=== PATIENT | female | born 1945 | race Caucasian/White ===

== ENCOUNTER 2017-02-19 00:56 | Inpatient (IN) | payer OTHER ==
[~2017-02-19] VITALS: Ht 149.9 cm; Wt 71.0 kg
[2017-02-19] VITALS (8 sets, daily range): BP systolic 157–181; BP diastolic 72–82; PULSE 76–103; RESP 16–20; Ht 149.9 cm; Wt 71.0 kg
[2017-02-19] MEDS ORDERED: SOD CHLORIDE 0.9% 1,000 ML IV STA (01:24)
[2017-02-19] MEDS ORDERED: ASPIRIN 81 MG TAB PO STA (01:24)
[2017-02-19] MEDS ORDERED: NITROGLYCERIN 2% 1 GM OINT PKT TD STA (01:24)
[2017-02-19] MEDS: NITROGLYCERIN (SL) 0.4 MG TAB SL PRN ×3 (02:11→02:50)
--- NOTE | 2017-02-19 02:50 | RADRPT ---
PROCEDURE: XR Chest. CLINICAL INDICATION: Chest pain. TECHNIQUE: Single frontal chest x-ray. COMPARISON: None. FINDINGS: Heart is enlarged.. There is no congestive heart failure.. No focal infiltrate is seen. There is n o pleural effusion. There is no pneumothorax. There are degenerative changes of the thoracic spine .. IMPRESSION: Cardiomegaly. No CHF or infiltrate. RPTAT: HMVK .David Mccloud MD, MD Date Time Electronically viewed and signed by .David Mccloud MD, on 02/19/2017 02:49 .K/
[2017-02-19 02:55] LABS: BASOPHILS % 0.1 % (0.0-2.0); EOSINOPHILS % 0.1 % (0.0-7.0); HEMATOCRIT 36.1 % (37.0-47.0); HEMOGLOBIN 12.1 g/dl (12.0-16.0); LYMPHOCYTES # 1.2 10^3/ul (0.8-2.9); LYMPHOCYTES % 7.5 % (15.0-51.0); MEAN CORPUSCULAR HEMOGLOBIN 29.8 pg (29.0-33.0); MEAN CORPUSCULAR HGB CONC 33.5 g/dl (32.0-37.0); MEAN CORPUSCULAR VOLUME 88.9 fl (82.0-101.0); MEAN PLATELET VOLUME 12.3 fl (7.4-10.4); MONOCYTES % 5.9 % (0.0-11.0); NEUTROPHILS % 85.9 % (39.0-77.0); PLATELET COUNT 185 10^3/UL (140-415); RED BLOOD COUNT 4.06 10^6/ul (4.20-5.40); RED CELL DISTRIBUTION WIDTH 13.2 % (11.5-14.5); WHITE BLOOD COUNT 16.4 10^3/ul (4.8-10.8)
[2017-02-19] MEDS ORDERED: morphine 4 MG/ML VIAL IV STA (03:06)
[2017-02-19] MEDS ORDERED: ONDANSETRON 4 MG INJ IV STA (03:06)
[2017-02-19 03:29] LABS: ANION GAP 21 (8-16); BLOOD UREA NITROGEN 13 mg/dl (7-20); CARBON DIOXIDE 24 mmol/L (21-31); CHLORIDE 98 mmol/L (97-110); CREATININE 0.75 mg/dl (0.44-1.00); GLUCOSE 157 mg/dl (70-220); POTASSIUM 4.1 mmol/L (3.5-5.1); SODIUM 139 mmol/L (135-144)
[2017-02-19 03:39] LABS: TROPONIN-I < 0.012 ng/ml (0.00-0.12)
[2017-02-19] MEDS ORDERED: ACETAMINOPHEN 325 MG TAB PO PRN (04:30)
[2017-02-19] MEDS ORDERED: ONDANSETRON 4 MG INJ IV PRN (04:30)
--- NOTE | 2017-02-19 04:52 | ERA ---
ER Documentation Chief Complaint Date/Time DATE: 02/19/17 TIME: 04:49 Chief Complaint BP cheked HI today, feeling tired & dehydrated HPI Patient is a 71-year-old female with diabetes and hypertension who presents with chest pain. She said that she started feeling bad yesterday while watching the [employer] football game. She felt bloated. She said that she felt "hot and tight under the breast". She says "I feel crappy". She said that her sugar was 590 and her blood pressure is 197/108. She says that her primary doctor is Dr. Marian Gonzalez. Upon review of old medical records this is the patient's first visit to the emergency department. ROS All systems reviewed and are negative except as per history of present illness. Allergies Allergies: Coded Allergies: No Known Allergy (Unverified , 02/19/17) PMhx/Soc History of Surgery: Yes (right shoulder) Anesthesia Reaction: No Hx Neurological Disorder: No Hx Respiratory Disorders: No Hx Cardiac Disorders: Yes (htn) Hx Psychiatric Problems: No Hx Miscellaneous Medical Probl: Yes (dm) Hx Alcohol Use: No Hx Substance Use: No Hx Tobacco Use: No Smoking Status: Never smoker FmHx Family History: No coronary disease Physical Exam Vitals Vital Signs Date Time Temp Pulse Resp B/P Pulse Ox O2 Delivery O2 Flow Rate FiO2 02/19/17 02:30 85 16 164/73 99 Room Air 02/19/17 02:12 84 16 166/80 96 Room Air 02/19/17 01:03 99.5 90 20 205/89 98 Physical Exam Const: No acute distress Head: Atraumatic Eyes: Normal Conjunctiva ENT: Normal External Ears, Nose and Mouth. Neck: Full range of motion..~ No meningismus. Resp: Clear to auscultation bilaterally Cardio: Regular rate and rhythm, no murmurs Abd: Soft, non tender, non distended. Normal bowel sounds Skin: Pale skin Back: No midline or flank tenderness Ext: No cyanosis, or edema Neur: Awake and alert Psych: Normal Mood and Affect Result Diagram: 02/19/17 01402/19/17 014 Results 24 hrs Laboratory Tests Test 02/19/17 01:40 White Blood Count 16.410^3/ul Red Blood Count 4.0610^6/ul Hemoglobin 12.1g/dl Hematocrit 36.1% Mean Corpuscular Volume 88.9fl Mean Corpuscular Hemoglobin 29.8pg Mean Corpuscular Hemoglobin Concent 33.5g/dl Red Cell Distribution Width 13.2% Platelet Count 94218^3/UL Mean Platelet Volume 12.3fl Neutrophils % 85.9% Lymphocytes % 7.5% Monocytes % 5.9% Eosinophils % 0.1% Basophils % 0.1% Nucleated Red Blood Cells % 0.0/100WBC Neutrophils # (Manual) 14.110^3/ul Lymphocytes # 1.210^3/ul Monocytes # 1.010^3/ul Eosinophils # 0.010^3/ul Basophils # 0.010^3/ul Nucleated Red Blood Cells # 0.010^3/ul Sodium Level 139mmol/L Potassium Level 4.1mmol/L Chloride Level 98mmol/L Carbon Dioxide Level 24mmol/L Anion Gap 21 Blood Urea Nitrogen 13mg/dl Creatinine 0.75mg/dl Glucose Level 157mg/dl Calcium Level 10.0mg/dl Troponin I < 0.012ng/ml Current Medications Medications (Trade) Dose Ordered Sig/Monica Route PRN Reason Start Time Stop Time Status Last Admin Dose Admin Sodium Chloride (NS) 1,000 ml @ 1,000 mls/hr Q1H STAT IV 02/19/17 01:24 02/19/17 02:23 DC 02/19/17 02:10 Aspirin (Aspirin) 162 mg ONCE STAT PO 02/19/17 01:24 02/19/17 01:25 DC 02/19/17 02:10 Nitroglycerin (Nitroglycerin 2% Oint) 1 inch ONCE STAT TD 02/19/17 01:24 02/19/17 01:25 DC 02/19/17 03:07 Nitroglycerin (Nitroglycerin (Sl Tab) 0.4 Mg) 1 tab Q5M UP TO 3 DOSES PRN SL CHEST PAIN 02/19/17 01:30 02/19/17 02:50 Morphine Sulfate (morphine) 4 mg ONCE STAT IV 02/19/17 03:06 02/19/17 03:07 DC 02/19/17 04:21 Ondansetron HCl (Zofran Inj) 4 mg ONCE STAT IV 02/19/17 03:06 02/19/17 03:07 DC 8/28/17 04:21 Ondansetron HCl (Zofran Inj) 4 mg ER BRIDGE PRN IV NAUSEA AND/OR VOMITING 02/19/17 04:30 02/20/17 04:29 Acetaminophen (Tylenol Tab) 650 mg ER BRIDGE PRN PO MILD PAIN/FEVER 02/19/17 04:30 02/20/17 04:29 Procedures/MDM EKG read by me: Rate/Rhythm: Regular rate and rhythm at a normal rate Intervals: Normal Impression: No evidence of ischemia or arrhythmia Chest x-ray shows cardiomegaly per radiology. Patient is a 71-year-old female with hypertension and diabetes who presents with chest pain. I am concerned as the patient has hypertension and diabetes that she may have acute coronary syndrome. I doubt pneumonia, pneumothorax, pulmonary embolism, or aortic dissection. She was given aspirin and nitroglycerin. She will be admitted to the care of Dr. Cope as she has [employer] insurance. She will be admitted to a telemetry bed. Initial troponin is negative. Her sugar is normal in the emergency department. Departure Diagnosis: Primary Impression: Chest pain Qualified Code: R07.9 - Chest pain, unspecified type Additional Impression: Hypertension Qualified Code: I10 - Essential hypertension Condition: PRADEEP Munroe MD Feb 19, 2017 04:52
[2017-02-19] MEDS ORDERED: NACL 0.9% 3 ML SYG IV SCH (05:00)
[2017-02-19] MEDS: HYDROCODONE/APAP (5/325) TAB PO PRN ×2 (07:45→20:14)
[2017-02-19] MEDS ORDERED: FAMOTIDINE 20 MG TAB PO SCH (09:00)
[2017-02-19] MEDS: DOCUSATE SODIUM 100 MG CAP PO PRN ×2 (09:12→20:14)
[2017-02-19] MEDS: ENOXAPARIN 40 MG/0.4 ML SYG SC SCH (09:13)
[2017-02-19 10:21] LABS: D-DIMER 367.81 ng/ml (<460)
[2017-02-19 10:28] LABS: CREATINE KINASE 39 IU/L (23-200)
[2017-02-19 10:42] LABS: CK-MB 0.52 ng/ml (0.0-2.4)
[2017-02-19 10:45] LABS: TROPONIN-I < 0.012 ng/ml (0.00-0.12)
[2017-02-19 14:09] LABS: ALBUMIN 3.8 g/dl (3.3-4.9); ALBUMIN/GLOBULIN RATIO 1.05; BILIRUBIN,INDIRECT 0.6 mg/dl (0-1.1); BILIRUBIN,TOTAL 0.6 mg/dl (0.2-1.3); CALCIUM 9.1 mg/dl (8.4-10.2); CHOL/HDL RATIO 3.2 RATIO; CREATININE 0.64 mg/dl (0.44-1.00); MAGNESIUM 1.4 mg/dl (1.7-2.5); POTASSIUM 3.8 mmol/L (3.5-5.1); TOTAL PROTEIN 7.4 g/dl (6.1-8.1)
[2017-02-19 14:59] LABS: BASOPHILS % 0.1 % (0.0-2.0); EOSINOPHILS % 0.1 % (0.0-7.0); HEMATOCRIT 34.3 % (37.0-47.0); HEMOGLOBIN 11.7 g/dl (12.0-16.0); LYMPHOCYTES # 1.2 10^3/ul (0.8-2.9); LYMPHOCYTES % 8.2 % (15.0-51.0); MEAN CORPUSCULAR HEMOGLOBIN 29.6 pg (29.0-33.0); MEAN CORPUSCULAR HGB CONC 34.1 g/dl (32.0-37.0); MEAN CORPUSCULAR VOLUME 86.8 fl (82.0-101.0); MEAN PLATELET VOLUME 11.6 fl (7.4-10.4); MONOCYTES % 6.5 % (0.0-11.0); NEUTROPHILS % 84.6 % (39.0-77.0); PLATELET COUNT 175 10^3/UL (140-415); RED BLOOD COUNT 3.95 10^6/ul (4.20-5.40); RED CELL DISTRIBUTION WIDTH 13.1 % (11.5-14.5); WHITE BLOOD COUNT 15.2 10^3/ul (4.8-10.8)
[2017-02-19 15:51] LABS: CREATINE KINASE 51 IU/L (23-200)
[2017-02-19 16:04] LABS: CK-MB 0.45 ng/ml (0.0-2.4)
[2017-02-19 16:05] LABS: TROPONIN-I < 0.012 ng/ml (0.00-0.12)
--- NOTE | 2017-02-19 16:23 | RADRPT ---
Echocardiogram Report Patient Name: GILES PEREA Gender: Female Date: 1945 Study Date: 19-Feb-2017 Human Performance Professor: Myla [facility] Location: 33[address] Ref. Physician: PARVEZ MAY Quality: Adequate Procedures: Transthoracic echocardiogram with complete 2D, M-Mode, and doppler examination. Indications: Chest pain, weakness. 2D/M Mode Doppler Measurement Value Normal Ranges Measurement Value Normal Ranges LVIDd 2D 4.8 3.5 - 5.6 cm AV Peak Kris 2.1 m/sec LVIDs 2D 3.2 2.1 - 4.1 cm AV Peak PG 18.0 mmHg FS 2D 34.1 % LVOT Peak Kris 1.1 m/sec LVPWd 2D 1.3 0.6 - 1.1 cm LVOT Peak PG 5.0 mmHg IVSd 2D 1.3 0.6 - 1.1 cm MV E Peak Kris 1.4 m/sec IVS/LVPW 2D 1.0 MV A Peak Kris 1.4 m/sec AoR Diam 2D 2.4 2.0 - 3.7 cm MV E/A 1.0 LA/Ao 2D 2 0 - 1 MV Decel Time 194 msec EDV 2D 109.0 cm3 MV E/A 1.0 ESV 2D 31.3 cm3 TR Peak Kris 2.6 m/sec LA Dimen 2D 3.8 2.3 - 4.0 cm TR Peak PG 28.0 mmHg RVSP 31.0 mmHg Findings Left Ventricle: Normal left ventricular systolic function. Normal left ventricular cavity size. Mild concentric left ventricular hypertrophy. Ejection fraction is visually estimated at 65 %. Tissue Doppler/Mitral Doppler indices are consistent with impaired relaxation (Stage I diastolic dysfunction). Right Ventricle: Normal right ventricular size. Normal right ventricular systolic function. Left Atrium: The left atrium is normal in size. Right Atrium: The right atrium is normal in size. Mitral Valve: Normal appearance of the mitral valve. Mild mitral annular calcification. Trace mitral regurgitation. Aortic Valve: Normal appearance of the aortic valve. No significant aortic stenosis or insufficiency. Tricuspid Valve: Normal appearance of the tricuspid valve. Estimated peak PA systolic pressure 31 mmHg. There is mild tricuspid regurgitation. Pulmonic Valve: Pulmonic valve not well visualized. There is trace pulmonic regurgitation. Pericardium: Normal pericardium with no significant pericardial effusion. Aorta: Normal aortic root. IVC: Normal size and normal respiratory collapse consistent with normal right atrial pressure. Conclusions 1.Normal left ventricular systolic function. Normal left ventricular cavity size. Mild concentric left ventricular hypertrophy. Ejection fraction is visually estimated at 65 %. Tissue Doppler/Mitral Doppler indices are consistent with impaired relaxation (Stage I diastolic dysfunction). 2.Normal right ventricular size. Normal right ventricular systolic function. 3.The left atrium is normal in size. 4.The right atrium is normal in size. 5.Estimated peak PA systolic pressure 31 mmHg. There is mild tricuspid regurgitation. 6.No significant valvular stenosis or regurgitation seen of remaining visualized valves. 7.Normal pericardium with no significant pericardial effusion. Electronically Signed By: David Gonzalez 19-Feb-2017 16:23:04 -0700 Patient Name: GILES PEREA Study Date: 19-Feb-2017 [id number]
[2017-02-19] MEDS ORDERED: hydrALAzine 20 MG INJ IV PRN (20:00)
--- NOTE | 2017-02-19 20:06 | HP ---
Date/Time of Note Date/Time of Note DATE: 02/19/17 TIME: 20:06 Assessment/Plan VTE Prophylaxis VTE Prophylaxis Intervention: LMWH Lines/Catheters IV [facility] [place] Urinary Cath still in place: No Assessment/Plan Assessment/Plan 71-year-old female with: 1. Epigastric, upper abdomen pain, reported constipation for the past 5 days. CAT scan of the abdomen and pelvis with oral contrast pending. White blood cell count is elevated, she did have low-grade temperatures. I will start her on Levaquin and Flagyl empirically while awaiting CAT scan results. Clear liquid diet Proton pump inhibitors 2. Hypertension: Resume home medications, beta-blockers and losartan added for now until final home medication list obtained. 3. Diabetes mellitus: Check hemoglobin A1c, hold off oral hypoglycemic agents, Lantus and sliding scale insulin with pre-meal insulin for now. 4. Hypothyroidism: Check TSH, free T4. Continue Synthroid 5. Anxiety disorder: Continue lorazepam as needed 6. Hyperlipidemia: Fasting lipid panel in a.m., continue atorvastatin. Prophylaxis: Lovenox for DVT prophylaxis, Protonix for GI prophylaxis Disposition: GI workup, discharge planning within 24-48 hours if stable. HPI/ROS Admit Date/Time Admit Date/Time Feb 19, 2017 at 04:23 Hx of Present Illness Chief complaint: Epigastric pain, chest pain History of presenting illness: This is a 71-year-old female with history of hypertension, diabetes mellitus, hypothyroidism, hyperlipidemia and anxiety disorder who presented to the emergency department with complaint of epigastric pain, chest pain for the past 48 hours. The patient denies substernal chest pain, she reports epigastric pain under her breast and across on both sides, she denies chills, she had low-grade fevers according to her, she has been constipated for the past 5 days now. Apparently yesterday she tried going on the treadmill, to help with constipation but her pain worsened She denies nausea, vomiting, shortness of breath, dyspnea on exertion. No previous episode of chest pain or cardiac disease. She has hypertension along with diabetes mellitus and is compliant with medications usually. She was admitted for chest pain rule out acute coronary syndrome, it was noted that her white blood cell count has been elevated, on the interview this evening the patient is actually reporting epigastric pain across her upper abdomen, constipation, decreased p.o. intake. CAT scan of the abdomen and pelvis is pending, clear liquids, check lipase and amylase, LFTs within normal this afternoon. Further treatment pending CAT scan of the abdomen and pelvis. ROS Constitutional: no complaints Eyes: no complaints ENT: no complaints Respiratory: no complaints Cardiovascular: no complaints Gastrointestinal: constipation, pain (Epigastric, bilateral upper quadrants of the abdomen) Skin: no complaints Neurologic: no complaints Endocrine: no complaints Lymphatic: no complaints Psychological: anxiety PMH/Family/Social Past Medical History Hypertension Diabetes mellitus Lipidemia Hypothyroidism Anxiety disorder Past Surgical History Right shoulder surgery remotely Right knee surgery remotely C-sections 2 remotely Family History Significant Family History: no pertinent family hx Social History Alcohol Use: occasionally Smoking Status: Never smoker Drug Use: none Exam/Review of Systems Vital Signs Vitals Vital Signs Date Time Temp Pulse Resp B/P Pulse Ox O2 Delivery O2 Flow Rate FiO2 02/19/17 19:58 99.4 98 16 181/81 97 02/19/17 17:14 Room Air Exam Constitutional: alert, oriented, other (obese ), well developed Psych: anxiety Eyes: EOMI, PERRL, nl conjunctiva, nl lids, nl sclera Respiratory: clear to auscultation, normal air movement Cardiovascular: nl pulses, regular rate and rhythm Gastrointestinal: bowel sounds, soft, tender (Epigastric, bilateral upper quadrant) Musculoskeletal: nl extremities to inspection, nl gait and stance Extremities: normal pulses, other (No edema, clubbing or cyanosis) Neurological: HE[employer] SAFETY ADVISOR II-XII intact, nl mental status, nl speech, nl strength Labs Result Diagram: 02/19/17 1440 02/19/17 1315 Medications Medications Current Medications Acetaminophen/ Hydrocodone Bitart ([place] (5/325)) 1 tab Q6H PRN PO PAIN LEVEL 4 -6 Last administered on 02/19/17 07:45; Admin Dose 1 TAB; Start 02/19/17 at 05: 00 Docusate Sodium (Colace) 100 mg Q12H PRN PO CONSTIPATION Last administered on 09:12; Admin Dose 100 MG; Start 02/19/17 at 05:00 Famotidine (Pepcid) 20 mg Q12 PO Last administered on 02/19/17 09:12; Admin Dose 20 MG; Start 02/19/17 at 09:00 Enoxaparin Sodium (Lovenox) 40 mg DAILY SC Last administered on 02/19/17t 09:13 ; Admin Dose 40 MG; Start 02/19/17 at 09:00 Diagnostic Test (Pha) (Accu-Chek) 1 ea 02 XX ; Start 02/20/17 at 02:00 Metoprolol Tartrate (Lopressor) 25 mg BID PO ; Start 02/19/17 at 21:00 Losartan Potassium (Cozaar) 25 mg BID PO ; Start 02/19/17 at 21:00 Hydralazine HCl (Apresoline) 10 mg Q8H PRN IV ELEVATED BLOOD PRESSURE; Start at 20:00 Aspirin (Halfprin) 81 mg DAILY PO ; Start 02/20/17 at 09:00 Miscellaneous Information 1 ea NOTE XX ; Start 02/19/17 at 20:30 Glucose (Glutose) 15 gm Q15M PRN PO DECREASED GLUCOSE; Start 02/19/17 at 20:30 Glucose (Glutose) 22.5 gm Q15M PRN PO DECREASED GLUCOSE; Start 02/19/17 at 20: 30 Dextrose (D50w Syringe) 25 ml Q15M PRN IV DECREASED GLUCOSE; Start 02/19/17 at 20:30 Dextrose (D50w Syringe) 50 ml Q15M PRN IV DECREASED GLUCOSE; Start 02/19/17 at 20:30 Glucagon (Glucagen) 1 mg Q15M PRN IM DECREASED GLUCOSE; Start 02/19/17 at 20:30 Glucose (Glutose) 15 gm Q15M PRN BUCCAL DECREASED GLUCOSE; Start 02/19/17 at 20 :30 Procedures Procedures PROCEDURE: XR Chest. CLINICAL INDICATION: Chest pain. TECHNIQUE: Single frontal chest x-ray. COMPARISON: None. FINDINGS: Heart is enlarged.. There is no congestive heart failure.. No focal infiltrate is seen. There is no pleural effusion. There is no pneumothorax. There are degenerative changes of the thoracic spine.. IMPRESSION: Cardiomegaly. No CHF or infiltrate. RPTAT: HMVK .David Mccloud MD, MD Date Time Electronically viewed and signed by .David Mccloud MD, on 02/19/2017 02:49 .John/ FARHAD GIPSON Feb 19, 2017 20:06
[2017-02-19] MEDS: LOSARTAN 25 MG TAB PO SCH (20:13)
[2017-02-19] MEDS: INSULIN ASPART [NOVOLOG] 3 ML PEN SC SCH (20:29)
[2017-02-19] MEDS ORDERED: GLUCOSE GEL 15 GRAM TUBE PO PRN ×2 (20:30)
[2017-02-19] MEDS ORDERED: BISACODYL 10 MG SUPP PR PRN (20:30)
[2017-02-19] MEDS ORDERED: GLUCAGON 1 MG INJ IM PRN (20:30)
[2017-02-19] MEDS ORDERED: morphine 2 MG INJ IV PRN (20:30)
[2017-02-19] MEDS ORDERED: DEXTROSE 50% 50 ML SYRINGE IV PRN ×2 (20:30)
[2017-02-19] MEDS ORDERED: BARIUM SULF 2% 450 ML BTL (BERRY SMOOTHIE) PO ONE (20:30)
[2017-02-19] MEDS ORDERED: GLUCOSE GEL 15 GRAM TUBE BUCCAL PRN (20:30)
[2017-02-19] MEDS ORDERED: MAGNESIUM HYDROXIDE 30ML CUP PO PRN (20:30)
[2017-02-19] MEDS: METOPROLOL 25 MG TAB PO SCH (20:36)
[2017-02-19 21:49] LABS: CREATINE KINASE 47 IU/L (23-200)
[2017-02-19 21:49] LABS: AMYLASE 64 U/L (11-123)
[2017-02-19 22:02] LABS: CK-MB 0.48 ng/ml (0.0-2.4); TROPONIN-I < 0.012 ng/ml (0.00-0.12)
[2017-02-19] MEDS: LORAZEPAM 1 MG TAB PO PRN (22:43)
[2017-02-19] MEDS: metroNIDAZOLE 500 MG/NS (PMX) 100 ML IVPB SCH (22:43)
[2017-02-19] MEDS: PANTOPRAZOLE 40 MG INJ IV SCH (22:43)
[2017-02-19] MEDS: LEVOFLOXACIN 500MG/D5W (PMX) 100 ML IVPB SCH (22:43)
[2017-02-19] MEDS: ATORVASTATIN 40 MG TAB PO SCH (22:45)
[2017-02-19] MEDS: SOD CHLORIDE 0.9% 1,000 ML IV SCH (22:47)
[2017-02-20] VITALS (19 sets, daily range): BP systolic 112–151; BP diastolic 59–97; PULSE 69–94; RESP 16–24
[2017-02-20] MEDS ORDERED: BARIUM SULF 2% 450 ML BTL (BERRY SMOOTHIE) PO ONE (00:18)
[2017-02-20] MEDS ORDERED: VITAMIN A & D 5 GM OINT PACKET TOP ONE (00:39)
[2017-02-20] MEDS ORDERED: ACCU-CHEK XX SCH (02:00)
[2017-02-20] MEDS: ACCU-CHEK XX SCH (02:00)
[2017-02-20 03:44] LABS: CHOL/HDL RATIO 2.6 RATIO; MAGNESIUM 1.5 mg/dl (1.7-2.5); PHOSPHORUS 2.6 mg/dl (2.5-4.9)
[2017-02-20 03:45] LABS: CALCIUM 9.5 mg/dl (8.4-10.2); CREATININE 0.64 mg/dl (0.44-1.00); POTASSIUM 3.9 mmol/L (3.5-5.1)
[2017-02-20 03:58] LABS: BASOPHILS % 0.2 % (0.0-2.0); CK-MB 0.51 ng/ml (0.0-2.4); HEMATOCRIT 36.6 % (37.0-47.0); HEMOGLOBIN 12.6 g/dl (12.0-16.0); LYMPHOCYTES # 1.2 10^3/ul (0.8-2.9); LYMPHOCYTES % 6.3 % (15.0-51.0); MEAN CORPUSCULAR HEMOGLOBIN 29.9 pg (29.0-33.0); MEAN CORPUSCULAR HGB CONC 34.4 g/dl (32.0-37.0); MEAN CORPUSCULAR VOLUME 86.7 fl (82.0-101.0); MONOCYTE # 1.1 10^3/ul (0.3-0.9); MONOCYTES % 5.8 % (0.0-11.0); NEUTROPHILS % 87.1 % (39.0-77.0); PLATELET COUNT 222 10^3/UL (140-415); RED BLOOD COUNT 4.22 10^6/ul (4.20-5.40); RED CELL DISTRIBUTION WIDTH 13.2 % (11.5-14.5); WHITE BLOOD COUNT 19.3 10^3/ul (4.8-10.8)
[2017-02-20 04:03] LABS: TROPONIN-I < 0.012 ng/ml (0.00-0.12)
[2017-02-20 04:16] LABS: THYROID STIMULATING HORMONE 0.849 MIU/L (0.465-4.680)
[2017-02-20 04:28] LABS: CREATINE KINASE 51 IU/L (23-200)
[2017-02-20] MEDS ORDERED: MAGNESIUM SULFATE 2 GM/50 ML 50 ML IVPB ONE ×2 (04:30→09:30)
[2017-02-20] MEDS ORDERED: ATOR40TA68 PO (05:14)
[2017-02-20] MEDS ORDERED: ENAL20TA PO (05:14)
[2017-02-20] MEDS ORDERED: MTF1000T PO (05:14)
[2017-02-20] MEDS ORDERED: OXYB5TAB7 PO (05:14)
[2017-02-20] MEDS ORDERED: HYDR-3671 PO (05:14)
[2017-02-20] MEDS ORDERED: SITA100T8 PO (05:14)
[2017-02-20] MEDS ORDERED: AMLO-147 PO (05:14)
[2017-02-20] MEDS ORDERED: ASPI-664 PO (05:14)
[2017-02-20] MEDS ORDERED: LEVO75TA5 PO (05:14)
[2017-02-20] MEDS ORDERED: HYDR-902 PO (05:14)
[2017-02-20] MEDS ORDERED: LORA1TAB PO (05:14)
[2017-02-20] MEDS: metroNIDAZOLE 500 MG/NS (PMX) 100 ML IVPB SCH ×3 (05:27→21:22)
[2017-02-20] MEDS: LEVOTHYROXINE 75 MCG TAB PO SCH (05:27)
[2017-02-20] MEDS: PANTOPRAZOLE 40 MG INJ IV SCH ×2 (05:27→17:52)
--- NOTE | 2017-02-20 05:32 | RADRPT ---
PROCEDURE: CT of the abdomen and pelvis without contrast CLINICAL INDICATION: abdo pain, r/o obstruction. TECHNIQUE: Spiral CT images through the abdomen and pelvis without the use of contrast. Oral contr ast was given. The administered radiation dose is CTDI 13.2 and DLP 754.22. Coronal and sagittal re formatted views were submitted. One or more of the following dose reduction techniques were used: a utomated exposure control, adjustment of the mA and/or kV according to patient size, or use of itera tive reconstruction technique. COMPARISON: None FINDINGS: Lack of oral and intravenous contrast somewhat limits evaluation. There is mild left basilar atel ectasis. No pleural or pericardial effusion is seen. There is a small hiatal hernia.. The liver, spleen, adrenal glands and pancreas are unremarkable.. The gallbladder is distended with gallstones, the largest measuring 3.2 x 3 x 5.4 cm. There is marked gallbladder wall edema. No bi liary ductal dilatation is seen. The kidneys are normal in size and contour. There is mild perinep hric fluid. Exophytic cyst is seen in the lower pole of the left kidney. Small parapelvic cyst in t he upper pole of the right kidney. No evidence of hydronephrosis or nephrolithiasis. The aorta is n ormal in caliber aortic calcifications are seen.. There is no evidence for bowel obstruction, free air, or abscess. The appendix is normal in appearance. There is colonic diverticulosis, extensive in the sigmoid colon without evidence of diverticulitis. No adenopathy or ascites is seen. The uteru s is atrophic. The bladder is decompressed. Severe L4-5 facet arthrosis, and central canal stenosi s. Severe left L5-S1 left facet hypertrophy, calcified disk protrusion and severe left neural foraminal narrowing. IMPRESSION: Cholelithiasis with severe gallbladder wall edema suggesting acute cholecystitis. No evidence of pratik iary ductal dilatation. No evidence of bowel obstruction. Colonic diverticulosis without evidence of acute diverticulitis. Small hiatal hernia. RPTAT: HCNS Physician Nixon Date Time Electronically viewed and signed by Physician Nixon on 02/20/2017 05:32 CS/
[2017-02-20] MEDS: INSULIN ASPART [NOVOLOG] 3 ML PEN SC SCH ×4 (08:25→21:00)
[2017-02-20] MEDS: ENOXAPARIN 40 MG/0.4 ML SYG SC SCH (08:26)
[2017-02-20] MEDS: LOSARTAN 25 MG TAB PO SCH ×2 (08:27→21:21)
[2017-02-20] MEDS: ASPIRIN (EC) 81 MG TAB PO SCH (08:28)
[2017-02-20] MEDS: SOD CHLORIDE 0.9% 1,000 ML IV SCH ×2 (08:28→23:10)
[2017-02-20] MEDS: AMLODIPINE 10 MG TAB PO SCH (08:28)
[2017-02-20] MEDS: METOPROLOL 25 MG TAB PO SCH ×2 (08:28→21:22)
[2017-02-20] MEDS: HYDROCODONE/APAP (5/325) TAB PO PRN ×2 (08:30→21:34)
[2017-02-20] MEDS ORDERED: ASPIRIN (EC) 81 MG TAB PO SCH (09:00)
[2017-02-20] MEDS ORDERED: ONDANSETRON 4 MG INJ ONE ×2 (11:28→17:48)
[2017-02-20] MEDS: ONDANSETRON 4 MG INJ IV PRN (11:30)
--- NOTE | 2017-02-20 11:37 | PN ---
Date/Time of Note Date/Time of Note DATE: 02/20/17 TIME: : Assessment/Plan VTE Prophylaxis VTE Prophylaxis Intervention: SCD's Lines/Catheters IV Catheter Type (from Nrsg): Peripheral IV Urinary Cath still in place: No Assessment/Plan Assessment/Plan 71-year-old female with: 1. Epigastric, upper abdomen pain, RUQ pain and back pain, acute cholecystitis on CAT scan overnight. WBC up to 19K On Levaquin and Flagyl empirically, surgical consult with Dr. Alvarez, plan for cholecystectomy at 5 PM today. N.p.o. Zofran as needed nausea vomiting, morphine for pain. Continue Protonix From the medical standpoint, patient stable for cholecystectomy today, chest x- ray stable, EKG stable no acute findings, she even had a 2D echocardiogram yesterday ejection fraction 65%, patient is a low cardiac risk due to the fact that she does have chronic diseases including hypertension and diabetes mellitus. Continue to monitor perioperatively. 2. Hypertension: Blood pressure better controlled, continue current medications. 3. Diabetes mellitus: Continue Lantus and sliding scale insulin with pre-meal insulin for now. 4. Hypothyroidism: TFTs within normal, continue Synthroid 5. Anxiety disorder: Continue lorazepam as needed 6. Hyperlipidemia: continue atorvastatin. Prophylaxis: Lovenox for DVT prophylaxis, Protonix for GI prophylaxis Disposition: Cholecystectomy later today with Dr. Alvarez. Subjective 24 Hr Interval Summary Free Text/Dictation Patient definitely has localizing right upper quadrant pain now, also radiating to the back into the right flank. Can did confirm acute cholecystitis. He is on IV antibiotics, WBC trended up today. She is now n.p.o., Dr. Alvarez was able to add her to the OR schedule at 5 PM for cholecystectomy. Exam/Review of Systems Vital Signs Vitals Vital Signs Date Time Temp Pulse Resp B/P Pulse Ox O2 Delivery O2 Flow Rate FiO2 02/20/17 11:25 97.8 71 19 127/60 96 02/19/17 17:14 Room Air Intake and Output 02/19/17 02/19/17 02/20/17 15:00 23:00 07:00 Intake Total 775 ml Balance 775 ml Exam Constitutional: alert, oriented, well developed Respiratory: clear to auscultation, normal air movement Cardiovascular: nl pulses, regular rate and rhythm Gastrointestinal: soft, tender (Upper quadrant, flank) Musculoskeletal: nl extremities to inspection Extremities: normal pulses, other (No edema, clubbing or cyanosis) Neurological: [employer] II-XII intact, nl mental status, nl speech, nl strength Results Result Diagram: 02/20/1731702/20/178 Results 24 hrs Laboratory Tests Test 02/19/17 13:15 02/19/17 14:40 02/19/17 15:00 02/19/17 17:17 Sodium Level 135 Potassium Level 3.8 Chloride Level 96 L Carbon Dioxide Level 25 Anion Gap 18 H Blood Urea Nitrogen 10 Creatinine 0.64 Glucose Level 146 Calcium Level 9.1 Magnesium Level 1.4 L Total Bilirubin 0.6 Direct Bilirubin 0.00 Indirect Bilirubin 0.6 Aspartate Amino Transf (AST/SGOT) 15 Alanine Aminotransferase (ALT/SGPT) 26 Alkaline Phosphatase 37 L Total Protein 7.4 Albumin 3.8 Globulin 3.60 H Albumin/Globulin Ratio 1.05 Triglycerides Level 135 Cholesterol Level 128 LDL Cholesterol, Calculated 62 HDL Cholesterol 39 Cholesterol/HDL Ratio 3.2 White Blood Count 15.2 H Red Blood Count 3.95 L Hemoglobin 11.7 L Hematocrit 34.3 L Mean Corpuscular Volume 86.8 Mean Corpuscular Hemoglobin 29.6 Mean Corpuscular Hemoglobin Concent 34.1 Red Cell Distribution Width 13.1 Platelet Count 175 Mean Platelet Volume 11.6 H Neutrophils % 84.6 H Lymphocytes % 8.2 L Monocytes % 6.5 Eosinophils % 0.1 Basophils % 0.1 Nucleated Red Blood Cells % 0.0 Neutrophils # (Manual) 12.8 H Lymphocytes # 1.2 Monocytes # 1.0 H Eosinophils # 0.0 Basophils # 0.0 Nucleated Red Blood Cells # 0.0 Creatine Kinase 51 Creatine Kinase Index 0.9 Creatinine Kinase MB (Mass) 0.45 Troponin I < 0.012 Bedside Glucose 140 Test 02/19/17 20:28 02/19/17 21:16 02/19/17 21:17 02/20/17 03:18 Bedside Glucose 161 Amylase Level 64 Lipase 78 Creatine Kinase 47 51 Creatine Kinase Index 1.0 1.0 Creatinine Kinase MB (Mass) 0.48 0.51 Troponin I < 0.012 < 0.012 White Blood Count 19.3 #H Red Blood Count 4.22 Hemoglobin 12.6 Hematocrit 36.6 L Mean Corpuscular Volume 86.7 Mean Corpuscular Hemoglobin 29.9 Mean Corpuscular Hemoglobin Concent 34.4 Red Cell Distribution Width 13.2 Platelet Count 222 # Mean Platelet Volume 12.0 H Neutrophils % 87.1 H Lymphocytes % 6.3 L Monocytes % 5.8 Eosinophils % 0.0 Basophils % 0.2 Nucleated Red Blood Cells % 0.0 Neutrophils # (Manual) 16.8 H Lymphocytes # 1.2 Monocytes # 1.1 H Eosinophils # 0.0 Basophils # 0.0 Nucleated Red Blood Cells # 0.0 Sodium Level 136 Potassium Level 3.9 Chloride Level 96 L Carbon Dioxide Level 26 Anion Gap 18 H Blood Urea Nitrogen 9 Creatinine 0.64 Glucose Level 154 Hemoglobin A1c 5.8 Calcium Level 9.5 Phosphorus Level 2.6 Magnesium Level 1.5 L Triglycerides Level 132 Cholesterol Level 139 LDL Cholesterol, Calculated 61 HDL Cholesterol 52 # Cholesterol/HDL Ratio 2.6 Thyroid Stimulating Hormone (TSH) 0.849 Free Thyroxine 1.05 Test 02/20/17 08:22 Bedside Glucose 180 Medications Medications Current Medications Acetaminophen/ Hydrocodone Bitart ([place] (5/325)) 1 tab Q6H PRN PO PAIN LEVEL 4 -6 Last administered on 02/20/17 08:30; Admin Dose 1 TAB; Start 02/19/17 at 05: 00 Docusate Sodium (Colace) 100 mg Q12H PRN PO CONSTIPATION Last administered on 20:14; Admin Dose 100 MG; Start 02/19/17 at 05:00 Enoxaparin Sodium (Lovenox) 40 mg DAILY SC Last administered on 02/19/17 09:13 ; Admin Dose 40 MG; Start 02/19/17 at 09:00 Diagnostic Test (Pha) (Accu-Chek) 1 ea 02 XX ; Start 02/20/17 at 02:00 Metoprolol Tartrate (Lopressor) 25 mg BID PO Last administered on 02/20/17 08: 28; Admin Dose 25 MG; Start 02/19/17 at 21:00 Losartan Potassium (Cozaar) 25 mg BID PO Last administered on 02/20/17 08:27; Admin Dose 25 MG; Start 02/19/17 at 21:00 Hydralazine HCl (Apresoline) 10 mg Q8H PRN IV ELEVATED BLOOD PRESSURE Last administered on 02/19/17 20:14; Admin Dose 10 MG; Start 02/19/17 at 20:00 Miscellaneous Information 1 ea NOTE XX ; Start 02/19/17 at 20:30 Glucose (Glutose) 15 gm Q15M PRN PO DECREASED GLUCOSE; Start 02/19/17 at 20:30 Glucose (Glutose) 22.5 gm Q15M PRN PO DECREASED GLUCOSE; Start 02/19/17 at 20: 30 Dextrose (D50w Syringe) 25 ml Q15M PRN IV DECREASED GLUCOSE; Start 02/19/17 at 20:30 Dextrose (D50w Syringe) 50 ml Q15M PRN IV DECREASED GLUCOSE; Start 02/19/17 at 20:30 Glucagon (Glucagen) 1 mg Q15M PRN IM DECREASED GLUCOSE; Start 02/19/17 at 20:30 Glucose (Glutose) 15 gm Q15M PRN BUCCAL DECREASED GLUCOSE; Start 02/19/17 at 20 :30 Magnesium Hydroxide (Milk Of Mag) 30 ml DAILY PRN PO CONSTIPATION Last administered on 02/19/17 22:43; Admin Dose 30 ML; Start 02/19/17 at 20:30 Bisacodyl (Dulcolax Supp) 10 mg DAILY PRN [place] CONSTIPATION Last administered on 02/19/17 22:43; Admin Dose 10 MG; Start 02/19/17 at 20:30 Pantoprazole (Protonix Iv) 40 mg BID@06,18 IV Last administered on 02/20/17 05 :27; Admin Dose 40 MG; Start 02/19/17 at 20:30 Morphine Sulfate 2 mg 2 mg Q4H PRN IV PAIN; Start 02/19/17 at 20:30 Sodium Chloride (NS) 1,000 ml @ 75 mls/hr [id number] IV Last administered on 02/19 22:47; Admin Dose 75 MLS/HR; Start 02/19/17 at 20:30 Atorvastatin Calcium (Lipitor) 40 mg HS PO Last administered on 02/19/17 22:45 ; Admin Dose 40 MG; Start 02/19/17 at 21:00 Amlodipine Besylate (Norvasc) 10 mg DAILY PO Last administered on 02/20/17 08: 28; Admin Dose 10 MG; Start 02/20/17 at 09:00 Aspirin (Halfprin) 81 mg DAILY PO Last administered on 02/20/17 08:28; Admin Dose 81 MG; Start 02/20/17 at 09:00 Lorazepam (Ativan) 1 mg Q8H PRN PO ANXIETY Last administered on 02/19/17 22:43 ; Admin Dose 1 MG; Start 02/19/17 at 21:00 Levothyroxine Sodium 75 mcg 75 mcg DAILY@06 PO Last administered on 02/20/17 05:27; Admin Dose 75 MCG; Start 02/20/17 at 06:00 Levofloxacin/ Dextrose 100 ml @ 100 mls/hr Q24H IVPB Last administered on 02/19 22:43; Admin Dose 100 MLS/HR; Start 02/19/17 at 21:00 Metronidazole 100 ml @ 100 mls/hr Q8 IVPB Last administered on 02/20/17 05:27 ; Admin Dose 100 MLS/HR; Start 02/19/17 at 22:00 Magnesium Sulfate (Magnesium Sulfate 2 Gm/50 ml) 50 ml @ 25 mls/hr ONCE ONCE IVPB ; Start 02/20/17 at 09:30; Stop 02/20/17 at 11:29 FARHAD GIPSON Feb 20, 2017 11:37
[2017-02-20 12:52] LABS: INR 0.96; PROTIME 12.8 Sec (12.2-14.2)
[2017-02-20 12:53] LABS: BILIRUBIN,INDIRECT 0.5 mg/dl (0-1.1); BILIRUBIN,TOTAL 0.5 mg/dl (0.2-1.3); TOTAL PROTEIN 7.5 g/dl (6.1-8.1)
[2017-02-20] MEDS ORDERED: HYDROmorphONE (0.2 MG/ML) 10ML SYG IV PRN ×2 (16:00)
[2017-02-20] MEDS ORDERED: EPHEDrine SULFATE 50 MG/5 ML SYG IV PRN (16:00)
[2017-02-20] MEDS ORDERED: DIPHENHYDRAMINE 50 MG INJ IV PRN (16:00)
[2017-02-20] MEDS ORDERED: FENTAnyl 50 MCG/ML VIAL IV PRN (16:00)
[2017-02-20] MEDS ORDERED: LABETALOL HCL 20MG INJ IV PRN (16:00)
[2017-02-20] MEDS ORDERED: ONDANSETRON 4 MG INJ IV PRN ×2 (16:00→19:00)
[2017-02-20] MEDS ORDERED: OXYCODONE/ACETAMINOPHEN (5/325) TAB PO PRN ×2 (16:00)
[2017-02-20] MEDS ORDERED: PROCHLORPERAZINE 10 MG INJ IV PRN (16:00)
[2017-02-20] MEDS ORDERED: MEPERIDINE 25 MG INJ IV PRN (16:00)
[2017-02-20] MEDS ORDERED: hydrALAzine 20 MG INJ IV PRN (16:00)
[2017-02-20] MEDS ORDERED: LIDOCAINE 2% (SDV) 5 ML INJ ONE (16:39)
[2017-02-20] MEDS ORDERED: PROPOFOL 20 ML ONE (16:40)
[2017-02-20] MEDS ORDERED: FENTAnyl 50 MCG/ML VIAL ONE (16:40)
[2017-02-20] MEDS ORDERED: MIDAZOLAM 1 MG/ML 2 ML INJ ONE (16:40)
[2017-02-20] MEDS ORDERED: BUPIVACAINE 0.25% (MPF) 30 ML INJ ONE (17:20)
--- NOTE | 2017-02-20 17:42 | CONS ---
Date/Time of Note Date/Time of Note DATE: 02/20/17 TIME: 17:26 Assessment/Plan Assessment/Plan Chief Complaint/Hosp Course Acute cholecystitis Plan: Patient will require laparoscopic cholecystectomy, possible open. I have discussed the procedure, outcomes, indications, alternatives and risks in detail with the patient who has an excellent understanding of the nature of her situation and agrees to the proposed plan of therapy as outlined. Problems: Consultation Date/Type/Reason Admit Date/Time Feb 19, 2017 at 04:23 Date of Consultation: Feb 20, 2017 Reason for Consultation Acute cholecystitis Patient is a 71-year-old diabetic hypertensive female who presented to the emergency room with 2 days of chest and epigastric pain. Cardiac workup was negative. CT shows an acutely inflamed markedly edematous gallbladder. The patient was started on intravenous antibiotics, however her pain continues and her leukocytosis has worsened. Constitutional: other (Chest and abdomen pain) Eyes: no complaints ENT: no complaints Respiratory: no complaints Cardiovascular: chest pain, no complaints Gastrointestinal: constipation, pain (Epigastric, bilateral upper quadrants of the abdomen) Genitourinary: no complaints Musculoskeletal: no complaints Skin: no complaints Neurologic: no complaints Endocrine: no complaints Lymphatic: no complaints Psychological: anxiety, no complaints Past Medical History History of section Past Surgical History Past Surgical Hx: other ( section) Family History Significant Family History: no pertinent family hx Social History Alcohol Use: none Smoking Status: Never smoker Drug Use: none Exam/Review of Systems Vital Signs Vitals Vital Signs Date Time Temp Pulse Resp B/P Pulse Ox O2 Delivery O2 Flow Rate FiO2 02/20/17 16:12 79 02/20/17 15:31 98.0 19 144/71 98 02/19/17 17:14 Room Air Intake and Output 02/19/17 02/19/17 02/20/17 15:00 23:00 07:00 Intake Total 775 ml Balance 775 ml Exam Constitutional: alert, oriented Psych: no complaints Head: normocephalic Eyes: nl conjunctiva ENMT: nl external ears & nose Neck: supple Respiratory: clear to auscultation Cardiovascular: regular rate and rhythm Gastrointestinal: tender (Right upper quadrant and epigastrium) Musculoskeletal: nl extremities to inspection Extremities: normal pulses Neurological: [employer] MAN II-XII intact Skin: nl turgor Lymph: nl lymph nodes Results Result Diagram: 02/20/17 0318 02/20/17 0318 Results 24 hrs Laboratory Tests Test 02/19/17 20:28 02/19/17 21:16 02/19/17 21:17 02/20/17 03:18 Bedside Glucose 161 Amylase Level 64 Lipase 78 Creatine Kinase 47 51 Creatine Kinase Index 1.0 1.0 Creatinine Kinase MB (Mass) 0.48 0.51 Troponin I < 0.012 < 0.012 White Blood Count 19.3 #H Red Blood Count 4.22 Hemoglobin 12.6 Hematocrit 36.6 L Mean Corpuscular Volume 86.7 Mean Corpuscular Hemoglobin 29.9 Mean Corpuscular Hemoglobin Concent 34.4 Red Cell Distribution Width 13.2 Platelet Count 222 # Mean Platelet Volume 12.0 H Neutrophils % 87.1 H Lymphocytes % 6.3 L Monocytes % 5.8 Eosinophils % 0.0 Basophils % 0.2 Nucleated Red Blood Cells % 0.0 Neutrophils # (Manual) 16.8 H Lymphocytes # 1.2 Monocytes # 1.1 H Eosinophils # 0.0 Basophils # 0.0 Nucleated Red Blood Cells # 0.0 Sodium Level 136 Potassium Level 3.9 Chloride Level 96 L Carbon Dioxide Level 26 Anion Gap 18 H Blood Urea Nitrogen 9 Creatinine 0.64 Glucose Level 154 Hemoglobin A1c 5.8 Calcium Level 9.5 Phosphorus Level 2.6 Magnesium Level 1.5 L Triglycerides Level 132 Cholesterol Level 139 LDL Cholesterol, Calculated 61 HDL Cholesterol 52 # Cholesterol/HDL Ratio 2.6 Thyroid Stimulating Hormone (TSH) 0.849 Free Thyroxine 1.05 Test 02/20/17 08:22 02/20/17 11:33 02/20/17 12:16 Bedside Glucose 180 190 Prothrombin Time 12.8 Prothrombin Time Ratio 1.0 INR International Normalized Ratio 0.96 Activated Partial Thromboplast Time 26.0 Total Bilirubin 0.5 Direct Bilirubin 0.00 Indirect Bilirubin 0.5 Aspartate Amino Transf (AST/SGOT) 18 Alanine Aminotransferase (ALT/SGPT) 24 Alkaline Phosphatase 38 L Total Protein 7.5 Albumin 4.0 Medications Medications Current Medications Acetaminophen/ Hydrocodone Bitart ([place] (5/325)) 1 tab Q6H PRN PO PAIN LEVEL 4 -6 Last administered on 02/20/17t 08:30; Admin Dose 1 TAB; Start 02/19/17 at 05: 00 Docusate Sodium (Colace) 100 mg Q12H PRN PO CONSTIPATION Last administered on 20:14; Admin Dose 100 MG; Start 02/19/17 at 05:00 Enoxaparin Sodium (Lovenox) 40 mg DAILY SC Last administered on 02/19/17 09:13 ; Admin Dose 40 MG; Start 02/19/17 at 09:00 Diagnostic Test (Pha) (Accu-Chek) 1 ea 02 XX ; Start 02/20/17 at 02:00 Metoprolol Tartrate (Lopressor) 25 mg BID PO Last administered on 02/20/17 08: 28; Admin Dose 25 MG; Start 02/19/17 at 21:00 Losartan Potassium (Cozaar) 25 mg BID PO Last administered on 02/20/17 08:27; Admin Dose 25 MG; Start 02/19/17 at 21:00 Hydralazine HCl (Apresoline) 10 mg Q8H PRN IV ELEVATED BLOOD PRESSURE Last administered on 02/19/17 20:14; Admin Dose 10 MG; Start 02/19/17 at 20:00 Miscellaneous Information 1 ea NOTE XX ; Start 02/19/17 at 20:30 Glucose (Glutose) 15 gm Q15M PRN PO DECREASED GLUCOSE; Start 02/19/17 at 20:30 Glucose (Glutose) 22.5 gm Q15M PRN PO DECREASED GLUCOSE; Start 02/19/17 at 20: 30 Dextrose (D50w Syringe) 25 ml Q15M PRN IV DECREASED GLUCOSE; Start 02/19/17 at 20:30 Dextrose (D50w Syringe) 50 ml Q15M PRN IV DECREASED GLUCOSE; Start 02/19/17 at 20:30 Glucagon (Glucagen) 1 mg Q15M PRN IM DECREASED GLUCOSE; Start 02/19/17 at 20:30 Glucose (Glutose) 15 gm Q15M PRN BUCCAL DECREASED GLUCOSE; Start 02/19/17 at 20 :30 Magnesium Hydroxide (Milk Of Mag) 30 ml DAILY PRN PO CONSTIPATION Last administered on 02/19/17 22:43; Admin Dose 30 ML; Start 02/19/17 at 20:30 Bisacodyl (Dulcolax Supp) 10 mg DAILY PRN [place] CONSTIPATION Last administered on 02/19/17 22:43; Admin Dose 10 MG; Start 02/19/17 at 20:30 Pantoprazole (Protonix Iv) 40 mg BID@06,18 IV Last administered on 02/20/17 05 :27; Admin Dose 40 MG; Start 02/19/17 at 20:30 Morphine Sulfate 2 mg 2 mg Q4H PRN IV PAIN Last administered on 02/20/17 11:24 ; Admin Dose 2 MG; Start 02/19/17 at 20:30 Sodium Chloride (NS) 1,000 ml @ 75 mls/hr [id number] IV Last administered on 02/19 22:47; Admin Dose 75 MLS/HR; Start 02/19/17 at 20:30 Atorvastatin Calcium (Lipitor) 40 mg HS PO Last administered on 02/19/17 22:45 ; Admin Dose 40 MG; Start 02/19/17 at 21:00 Amlodipine Besylate (Norvasc) 10 mg DAILY PO Last administered on 02/20/17 08: 28; Admin Dose 10 MG; Start 02/20/17 at 09:00 Aspirin (Halfprin) 81 mg DAILY PO Last administered on 02/20/17 08:28; Admin Dose 81 MG; Start 02/20/17 at 09:00 Lorazepam (Ativan) 1 mg Q8H PRN PO ANXIETY Last administered on 02/19/17 22:43 ; Admin Dose 1 MG; Start 02/19/17 at 21:00 Levothyroxine Sodium 75 mcg 75 mcg DAILY@06 PO Last administered on 02/20/17 05:27; Admin Dose 75 MCG; Start 02/20/17 at 06:00 Levofloxacin/ Dextrose 100 ml @ 100 mls/hr Q24H IVPB Last administered on 02/19 22:43; Admin Dose 100 MLS/HR; Start 02/19/17 at 21:00 Metronidazole (Flagyl 500 Mg (Pmx)) 100 ml @ 100 mls/hr Q8 IVPB Last administered on 02/20/17 13:40; Admin Dose 100 MLS/HR; Start 02/19/17 at 22:00 Ondansetron HCl (Zofran Inj) 4 mg Q4H PRN IV NAUSEA AND/OR VOMITING Last administered on 02/20/17 11:30; Admin Dose 4 MG; Start 02/20/17 at 11:30 GHADA HERNANDZE MD Feb 20, 2017 17:37
[2017-02-20] MEDS ORDERED: SUCCINYLCHOLINE CHLORIDE 100 MG/5 ML SYG IV ONE (17:48)
[2017-02-20] MEDS ORDERED: METOCLOPRAMIDE 10 MG INJ ONE (17:48)
[2017-02-20] MEDS ORDERED: ROCURONIUM 50 MG INJ ONE (17:48)
--- NOTE | 2017-02-20 18:07 | RADRPT ---
Vent Rate: 60 bpm RR Interval: 0 msec OK Interval: 174 msec QRS Duration: 84 msec QT Interval: 462 msec QTC Interval: 462 msec P-R-T Amanda: 35 - 3 - 44 degrees Normal sinus rhythm Possible Septal infarct , age undetermined Abnormal ECG Electronically Signed By: David Gonzalez [id number]
[2017-02-20] MEDS ORDERED: SUGAMMADEX SODIUM 200 MG/2 ML VIAL IV ONE (18:12)
[2017-02-20] MEDS ORDERED: KETOROLAC 30 MG INJ ONE (18:12)
--- NOTE | 2017-02-20 18:56 | OPR ---
Date/Time of Note Date/Time of Note DATE: 02/20/17 TIME: 18:49 Operative Report Procedure Date: Feb 20, 2017 Preoperative Diagnosis Acute cholecystitis Postoperative Diagnosis Acute cholecystitis Operation Performed 1. Laparoscopic cholecystectomy 2. Placement of drain Surgeon: GHADA HERNANDEZ MD Anesthesia Type: general Anesthesiologist: CRISPIN FINE MD Estimated Blood Loss: 50 - 100 ml's Transfusion Required: no Specimens Gallbladder Grafts/Implants: none Tubes/Drains #19 Round Navid drain Complications: no Pt Condition Post Procedure: stable Disposition: PACU Indications Acute cholecystitis Operative\Procedure Findings After satisfactory general endotracheal anesthesia was achieved, the abdomen was insufflated with carbon dioxide through an umbilical Veress needle to 15 mmHg pressure. Veress needle was removed and the incision extended to 5 mm through which a 5 mm trocar was placed. A 5 mm 0 lens was placed. Laparoscopy showed an acutely inflamed edematous gallbladder covered with adhesions. Under direct visualization a 12 mm epigastric trocar was placed as well as 2 5 mm right lateral abdominal trochars. Dome of the gallbladder was grasped and retracted superiorly. Omental adhesions were taken down to the level of the Davis's pouch. The duodenum was very close to the Davis's pouch this was off from the gallbladder with sharp dissection. Next Davis's pouch was able to be grasped and retracted inferior laterally the hepatoduodenal ligament was carefully dissected. The cystic duct was then quadruply hemoclipped and divided high at the junction of the gallbladder and the cystic duct. The cystic artery was identified immediately posteriorly, and was triply hemoclipped and divided. Gallbladder was then dissected from below using electrocautery dissection and placed intact into an Endo Catch removed via the epigastric route. The gallbladder was so thickened and filled with stones that the epigastric incision had to be extended to 5 cm to facilitate removal of this gallbladder. The gallbladder was submitted and laparoscopy continued. Hemostasis of liver bed was adequate and irrigant now returned clear. Because of the severe infection of the gallbladder, it was elected to place a drain. #19 round Navid drain was placed draining the gallbladder fossa and right subhepatic space, exiting through the lateralmost puncture site where it was secured to the skin with 2-0 nylon. The fascia of the epigastrium was closed with a row of #1 Vicryl sutures. Skin punctures were infiltrated with 30 cc of 0.25% plain Marcaine and closed with jennifer. Sponge and needle counts were reported as correct 2. GHADA HERNANDEZ MD Feb 20, 2017 18:56
[2017-02-20] MEDS ORDERED: morphine 2 MG INJ IV PRN (19:00)
[2017-02-20] MEDS: LEVOFLOXACIN 500MG/D5W (PMX) 100 ML IVPB SCH (21:18)
[2017-02-20] MEDS: LORAZEPAM 1 MG TAB PO PRN (21:19)
[2017-02-20] MEDS: ATORVASTATIN 40 MG TAB PO SCH (21:20)
[2017-02-21] VITALS (12 sets, daily range): BP systolic 123–153; BP diastolic 57–70; PULSE 62–72; RESP 17–18
[2017-02-21] MEDS: ACCU-CHEK XX SCH (02:00)
[2017-02-21] MEDS: PANTOPRAZOLE 40 MG INJ IV SCH (06:03)
[2017-02-21] MEDS: LEVOTHYROXINE 75 MCG TAB PO SCH (06:04)
[2017-02-21] MEDS: metroNIDAZOLE 500 MG/NS (PMX) 100 ML IVPB SCH ×3 (06:04→22:05)
[2017-02-21] MEDS: INSULIN ASPART [NOVOLOG] 3 ML PEN SC SCH ×4 (07:55→20:18)
[2017-02-21 08:16] LABS: BASOPHILS % 0.1 % (0.0-2.0); HEMATOCRIT 31.7 % (37.0-47.0); HEMOGLOBIN 10.6 g/dl (12.0-16.0); LYMPHOCYTES % 7.8 % (15.0-51.0); MEAN CORPUSCULAR HEMOGLOBIN 29.9 pg (29.0-33.0); MEAN CORPUSCULAR HGB CONC 33.4 g/dl (32.0-37.0); MEAN CORPUSCULAR VOLUME 89.3 fl (82.0-101.0); MEAN PLATELET VOLUME 12.1 fl (7.4-10.4); MONOCYTE # 0.9 10^3/ul (0.3-0.9); MONOCYTES % 7.3 % (0.0-11.0); NEUTROPHILS % 84.5 % (39.0-77.0); PLATELET COUNT 167 10^3/UL (140-415); RED BLOOD COUNT 3.55 10^6/ul (4.20-5.40); RED CELL DISTRIBUTION WIDTH 13.6 % (11.5-14.5); WHITE BLOOD COUNT 12.3 10^3/ul (4.8-10.8)
[2017-02-21 08:40] LABS: MAGNESIUM 2.6 mg/dl (1.7-2.5); PHOSPHORUS 2.6 mg/dl (2.5-4.9)
[2017-02-21] MEDS: ENOXAPARIN 40 MG/0.4 ML SYG SC SCH (08:48)
[2017-02-21] MEDS: METOPROLOL 25 MG TAB PO SCH ×2 (08:52→20:17)
[2017-02-21] MEDS: AMLODIPINE 10 MG TAB PO SCH (08:52)
[2017-02-21] MEDS: ASPIRIN (EC) 81 MG TAB PO SCH (08:52)
[2017-02-21] MEDS: LOSARTAN 25 MG TAB PO SCH ×2 (08:53→20:17)
[2017-02-21 08:58] LABS: ALBUMIN 3.3 g/dl (3.3-4.9); ALBUMIN/GLOBULIN RATIO 1.1; BILIRUBIN,INDIRECT 0.3 mg/dl (0-1.1); BILIRUBIN,TOTAL 0.3 mg/dl (0.2-1.3); CREATININE 0.76 mg/dl (0.44-1.00); POTASSIUM 3.9 mmol/L (3.5-5.1); TOTAL PROTEIN 6.3 g/dl (6.1-8.1)
[2017-02-21] MEDS: HYDROCODONE/APAP (5/325) TAB PO PRN (11:30)
[2017-02-21] MEDS: SOD CHLORIDE 0.9% 1,000 ML IV SCH (11:56)
--- NOTE | 2017-02-21 15:01 | PN ---
Date/Time of Note Date/Time of Note DATE: 02/21/17 TIME: 14:59 Assessment/Plan Lines/Catheters IV Catheter Type (from Nrsg): Peripheral IV [place] in Place (from Nrsg): No Assessment/Plan Chief Complaint/Hosp Course BRANDO drainage is serous Patient symptomatically improved Problems: Assessment/Plan Continue medical management Discharge planning for tomorrow Subjective 24 Hr Interval Summary Postoperative day #1 She is symptomatically improved but still in moderate amount of postoperative pain WBC improved LFTs are normal Constitutional: improved Feeding: advancing diet Pain Control: moderate Exam/Review of Systems Vital Signs Vitals Vital Signs Date Time Temp Pulse Resp B/P Pulse Ox O2 Delivery O2 Flow Rate FiO2 02/21/17 12:29 69 02/21/17 12:11 98.2 18 144/66 94 02/20/17 19:26 Nasal Cannula 2.0 Intake and Output 02/20/17 02/20/17 02/21/17 15:00 23:00 07:00 Intake Total 925 ml Output Total 55 ml Balance 870 ml Results Result Diagram: 02/21/17 0730 02/21/17 0730 GHADA HERNANDEZ MD Feb 21, 2017 15:01
[2017-02-21] MEDS: PANTOPRAZOLE (EC) 40 MG TAB PO SCH (17:57)
[2017-02-21] MEDS: OXYCODONE/ACETAMINOPHEN (5/325) TAB PO PRN ×2 (17:59→22:05)
--- NOTE | 2017-02-21 18:20 | PN ---
Date/Time of Note Date/Time of Note DATE: 02/21/17 TIME: 18:13 Assessment/Plan VTE Prophylaxis VTE Prophylaxis Intervention: LMWH Lines/Catheters IV Catheter Type (from Nrs): Peripheral IV Urinary Cath still in place: No Assessment/Plan Assessment/Plan 71-year-old female with: 1. Acute cholecystitis, POD#1 post laparoscopic cholecystectomy with a drain in place Patient doing much better, WBC down to 12K On Levaquin and Flagyl Tolerating p.o. so for Zofran as needed nausea vomiting, Percocet for pain. Continue Protonix Discharge planning for tomorrow per surgery. Continue to monitor perioperatively. 2. Hypertension: Blood pressure better controlled, continue current medications. 3. Diabetes mellitus: Continue Lantus and sliding scale insulin with pre-meal insulin for now. 4. Hypothyroidism: TFTs within normal, continue Synthroid 5. Anxiety disorder: Continue lorazepam as needed 6. Hyperlipidemia: continue atorvastatin. Prophylaxis: Lovenox for DVT prophylaxis, Protonix for GI prophylaxis Disposition: Discharge planning for tomorrow per Dr. Alvarez. Subjective 24 Hr Interval Summary Free Text/Dictation Patient doing well, she is on clear liquids being advance, pain is controlled with Percocet, white blood cell count is trending down. She Dr. Alvarez's recommendations, discharge planning for tomorrow. 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, nl mental status, nl speech, nl strength Results Result Diagram: 02/21/17 0730 02/21/17 0730 Results 24 hrs Laboratory Tests Test 02/20/17 19:05 02/20/17 21:16 02/21/17 07:30 02/21/17 07:56 Bedside Glucose 192 179 151 White Blood Count 12.3 #H Red Blood Count 3.55 L Hemoglobin 10.6 L Hematocrit 31.7 L Mean Corpuscular Volume 89.3 Mean Corpuscular Hemoglobin 29.9 Mean Corpuscular Hemoglobin Concent 33.4 Red Cell Distribution Width 13.6 Platelet Count 167 # Mean Platelet Volume 12.1 H Neutrophils % 84.5 H Lymphocytes % 7.8 L Monocytes % 7.3 Eosinophils % 0.0 Basophils % 0.1 Nucleated Red Blood Cells % 0.0 Neutrophils # (Manual) 10.4 H Lymphocytes # 1.0 Monocytes # 0.9 Eosinophils # 0.0 Basophils # 0.0 Nucleated Red Blood Cells # 0.0 Sodium Level 135 Potassium Level 3.9 Chloride Level 99 Carbon Dioxide Level 23 Anion Gap 17 H Blood Urea Nitrogen 16 Creatinine 0.76 Glucose Level 134 Calcium Level 8.0 L Phosphorus Level 2.6 Magnesium Level 2.6 #H Total Bilirubin 0.3 Direct Bilirubin 0.00 Indirect Bilirubin 0.3 Aspartate Amino Transf (AST/SGOT) 62 H Alanine Aminotransferase (ALT/SGPT) 63 Alkaline Phosphatase 44 Total Protein 6.3 # Albumin 3.3 Globulin 3.00 Albumin/Globulin Ratio 1.10 Test 02/21/17 11:46 02/21/17 17:20 Bedside Glucose 134 163 Medications Medications Current Medications Acetaminophen/ Hydrocodone Bitart ([place] (5/325)) 1 tab Q6H PRN PO PAIN LEVEL 4 -6 Last administered on 02/21/17 11:30; Admin Dose 1 TAB; Start 02/19/17 at 05: 00 Docusate Sodium (Colace) 100 mg Q12H PRN PO CONSTIPATION Last administered on 20:14; Admin Dose 100 MG; Start 02/19/17 at 05:00 Enoxaparin Sodium (Lovenox) 40 mg DAILY SC Last administered on 02/19/17 09:13 ; Admin Dose 40 MG; Start 02/19/17 at 09:00 Diagnostic Test (Pha) (Accu-Chek) 1 ea 02 XX ; Start 02/20/17 at 02:00 Metoprolol Tartrate (Lopressor) 25 mg BID PO Last administered on 02/21/17 08: 52; Admin Dose 25 MG; Start 02/19/17 at 21:00 Losartan Potassium (Cozaar) 25 mg BID PO Last administered on 02/21/17 08:53; Admin Dose 25 MG; Start 02/19/17 at 21:00 Hydralazine HCl (Apresoline) 10 mg Q8H PRN IV ELEVATED BLOOD PRESSURE Last administered on 02/19/17 20:14; Admin Dose 10 MG; Start 02/19/17 at 20:00 Miscellaneous Information 1 ea NOTE XX ; Start 02/19/17 at 20:30 Glucose (Glutose) 15 gm Q15M PRN PO DECREASED GLUCOSE; Start 02/19/17 at 20:30 Glucose (Glutose) 22.5 gm Q15M PRN PO DECREASED GLUCOSE; Start 02/19/17 at 20: 30 Dextrose (D50w Syringe) 25 ml Q15M PRN IV DECREASED GLUCOSE; Start 02/19/17 at 20:30 Dextrose (D50w Syringe) 50 ml Q15M PRN IV DECREASED GLUCOSE; Start 02/19/17 at 20:30 Glucagon (Glucagen) 1 mg Q15M PRN IM DECREASED GLUCOSE; Start 02/19/17 at 20:30 Glucose (Glutose) 15 gm Q15M PRN BUCCAL DECREASED GLUCOSE; Start 02/19/17 at 20 :30 Magnesium Hydroxide (Milk Of Mag) 30 ml DAILY PRN PO CONSTIPATION Last administered on 02/19/17 22:43; Admin Dose 30 ML; Start 02/19/17 at 20:30 Bisacodyl (Dulcolax Supp) 10 mg DAILY PRN [place] CONSTIPATION Last administered on 02/19/17 22:43; Admin Dose 10 MG; Start 02/19/17 at 20:30 Morphine Sulfate 2 mg 2 mg Q4H PRN IV PAIN Last administered on 02/20/17 11:24 ; Admin Dose 2 MG; Start 02/19/17 at 20:30 Sodium Chloride (NS) 1,000 ml @ 75 mls/hr [id number] IV Last administered on 02/21 11:56; Admin Dose 75 MLS/HR; Start 02/19/17 at 20:30 Atorvastatin Calcium (Lipitor) 40 mg HS PO Last administered on 02/20/17 21:20 ; Admin Dose 40 MG; Start 02/19/17 at 21:00 Amlodipine Besylate (Norvasc) 10 mg DAILY PO Last administered on 02/21/17 08: 52; Admin Dose 10 MG; Start 02/20/17 at 09:00 Aspirin (Halfprin) 81 mg DAILY PO Last administered on 02/21/17 08:52; Admin Dose 81 MG; Start 02/20/17 at 09:00 Lorazepam (Ativan) 1 mg Q8H PRN PO ANXIETY Last administered on 02/20/17 21:19 ; Admin Dose 1 MG; Start 02/19/17 at 21:00 Levothyroxine Sodium 75 mcg 75 mcg DAILY@06 PO Last administered on 02/21/17 06:04; Admin Dose 75 MCG; Start 02/20/17 at 06:00 Levofloxacin/ Dextrose 100 ml @ 100 mls/hr Q24H IVPB Last administered on 02/20 21:18; Admin Dose 100 MLS/HR; Start 02/19/17 at 21:00 Metronidazole (Flagyl 500 Mg (Pmx)) 100 ml @ 100 mls/hr Q8 IVPB Last administered on 02/21/17 14:40; Admin Dose 100 MLS/HR; Start 02/19/17 at 22:00 Ondansetron HCl (Zofran Inj) 4 mg Q4H PRN IV NAUSEA AND/OR VOMITING Last administered on 02/20/17 11:30; Admin Dose 4 MG; Start 02/20/17 at 11:30 Oxycodone/ Acetaminophen (Percocet (5/ 325)) 1 tab Q4H PRN PO MILD PAIN (1-3); Start 02/20/17 at 19:00 Oxycodone/ Acetaminophen (Percocet (5/ 325)) 2 tab Q4H PRN PO MODERATE PAIN (4- 6) Last administered on 02/21/17 17:59; Admin Dose 2 TAB; Start 02/20/17 at 19: 00 Morphine Sulfate (morphine) 2 mg ONCE PRN IV SEVERE PAIN LEVEL 7-10; Start at 19:00; Stop 02/21/17 at 18:59 Ondansetron HCl (Zofran Inj) 4 mg Q6H PRN IV NAUSEA; Start 02/20/17 at 19:00 Pantoprazole (Protonix Tab) 40 mg BID@,18 PO Last administered on 8/30/17at 17:57; Admin Dose 40 MG; Start 02/21/17 at 18:00 FARHAD GIPSON Feb 21, 2017 18:20
[2017-02-21] MEDS ORDERED: ACETAMINOPHEN 325 MG TAB PO PRN (18:30)
[2017-02-21] MEDS: ATORVASTATIN 40 MG TAB PO SCH (20:14)
[2017-02-21] MEDS: LEVOFLOXACIN 500MG/D5W (PMX) 100 ML IVPB SCH (20:18)
[2017-02-21] MEDS: ONDANSETRON 4 MG INJ IV PRN (20:18)
[2017-02-21] MEDS: LORAZEPAM 1 MG TAB PO PRN (20:27)
[2017-02-22] VITALS (10 sets, daily range): BP systolic 140–172; BP diastolic 60–79; PULSE 66–82; RESP 17–18
[2017-02-22] MEDS: SOD CHLORIDE 0.9% 1,000 ML IV SCH ×2 (01:50→05:36)
[2017-02-22] MEDS: ACCU-CHEK XX SCH (01:52)
[2017-02-22] MEDS: OXYCODONE/ACETAMINOPHEN (5/325) TAB PO PRN ×3 (02:53→14:30)
[2017-02-22] MEDS: metroNIDAZOLE 500 MG/NS (PMX) 100 ML IVPB SCH ×2 (05:26→14:00)
[2017-02-22] MEDS: PANTOPRAZOLE (EC) 40 MG TAB PO SCH (05:27)
[2017-02-22] MEDS: LEVOTHYROXINE 75 MCG TAB PO SCH (05:27)
[2017-02-22] MEDS: INSULIN ASPART [NOVOLOG] 3 ML PEN SC SCH ×2 (07:35→11:30)
[2017-02-22 07:36] LABS: BASOPHILS % 0.2 % (0.0-2.0); EOSINOPHILS # 0.1 10^3/ul (0.0-0.5); EOSINOPHILS % 0.5 % (0.0-7.0); HEMATOCRIT 33.3 % (37.0-47.0); HEMOGLOBIN 10.8 g/dl (12.0-16.0); LYMPHOCYTES # 1.2 10^3/ul (0.8-2.9); LYMPHOCYTES % 10.7 % (15.0-51.0); MEAN CORPUSCULAR HEMOGLOBIN 29.4 pg (29.0-33.0); MEAN CORPUSCULAR HGB CONC 32.4 g/dl (32.0-37.0); MEAN CORPUSCULAR VOLUME 90.7 fl (82.0-101.0); MEAN PLATELET VOLUME 12.2 fl (7.4-10.4); MONOCYTE # 0.8 10^3/ul (0.3-0.9); MONOCYTES % 7.2 % (0.0-11.0); PLATELET COUNT 173 10^3/UL (140-415); RED BLOOD COUNT 3.67 10^6/ul (4.20-5.40); RED CELL DISTRIBUTION WIDTH 13.5 % (11.5-14.5); WHITE BLOOD COUNT 11.2 10^3/ul (4.8-10.8)
[2017-02-22 07:44] LABS: ALBUMIN 3.2 g/dl (3.3-4.9); ALBUMIN/GLOBULIN RATIO 0.91; BILIRUBIN,INDIRECT 0.2 mg/dl (0-1.1); BILIRUBIN,TOTAL 0.2 mg/dl (0.2-1.3); CALCIUM 8.6 mg/dl (8.4-10.2); CREATININE 0.67 mg/dl (0.44-1.00); TOTAL PROTEIN 6.7 g/dl (6.1-8.1)
[2017-02-22 07:55] LABS: MAGNESIUM 2.2 mg/dl (1.7-2.5); PHOSPHORUS 2.2 mg/dl (2.5-4.9)
[2017-02-22] MEDS: LOSARTAN 25 MG TAB PO SCH (08:18)
[2017-02-22] MEDS: METOPROLOL 25 MG TAB PO SCH (08:19)
[2017-02-22] MEDS: AMLODIPINE 10 MG TAB PO SCH (08:19)
[2017-02-22] MEDS: ASPIRIN (EC) 81 MG TAB PO SCH (08:20)
[2017-02-22] MEDS: ENOXAPARIN 40 MG/0.4 ML SYG SC SCH (08:23)
--- NOTE | 2017-02-22 14:24 | PN ---
Date/Time of Note Date/Time of Note DATE: 02/22/17 TIME: 14:21 Assessment/Plan VTE Prophylaxis VTE Prophylaxis Intervention: LMWH Lines/Catheters IV Catheter Type (from Nrs): Peripheral IV Urinary Cath still in place: No Assessment/Plan Assessment/Plan 71-year-old female with: 1. Acute cholecystitis, POD#2 post laparoscopic cholecystectomy with a drain in place. Drain removed. Patient doing well and tolerating p.o. WBC keeps trending down. Continue p.o. Levaquin and Flagyl 5 more days Percocet for pain. Continue Protonix Discharge home today with outpatient follow-up with Dr. Alvarez in 1 week and follow-up with primary care physician in 1-2 weeks 2. Hypertension: Blood pressure better controlled, continue current medications. 3. Diabetes mellitus: Continue Lantus and sliding scale insulin with pre-meal insulin for now. 4. Hypothyroidism: TFTs within normal, continue Synthroid 5. Anxiety disorder: Continue lorazepam as needed 6. Hyperlipidemia: continue atorvastatin. Prophylaxis: Lovenox for DVT prophylaxis, Protonix for GI prophylaxis Disposition: Discharge home today with outpatient follow-up with general surgery and PCP. Subjective 24 Hr Interval Summary Free Text/Dictation Patient doing well, drain has been removed this morning. No fevers, white blood cell count keep trending back down to normal. She will be discharged home today with oral antibiotics for 5 more days, outpatient follow-up with Dr. Alvarez and primary care follow-up. Exam/Review of Systems Vital Signs Vitals Vital Signs Date Time Temp Pulse Resp B/P Pulse Ox O2 Delivery O2 Flow Rate FiO2 02/22/17 12:00 69 02/22/17 11:07 98.2 18 157/65 91 02/20/17 19:26 Nasal Cannula 2.0 Intake and Output 02/21/17 02/21/17 02/22/17 15:00 23:00 07:00 Intake Total 834 ml 859 ml Output Total 100 ml 40 ml 30 ml Balance -100 ml 794 ml 829 ml Exam Constitutional: alert, oriented, well developed Respiratory: clear to auscultation, normal air movement Cardiovascular: nl pulses, regular rate and rhythm Gastrointestinal: soft, tender (Mild tenderness at the postop site.) Musculoskeletal: nl extremities to inspection Extremities: normal pulses 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, nl mental status, nl speech, nl strength Results Result Diagram: 02/22/17 0635 02/22/17 0635 Results 24 hrs Laboratory Tests Test 02/21/17 17:20 02/21/17 20:16 02/22/17 06:35 02/22/17 07:32 Bedside Glucose 163 131 137 White Blood Count 11.2 H Red Blood Count 3.67 L Hemoglobin 10.8 L Hematocrit 33.3 L Mean Corpuscular Volume 90.7 Mean Corpuscular Hemoglobin 29.4 Mean Corpuscular Hemoglobin Concent 32.4 Red Cell Distribution Width 13.5 Platelet Count 173 Mean Platelet Volume 12.2 H Neutrophils % 81.0 H Lymphocytes % 10.7 L Monocytes % 7.2 Eosinophils % 0.5 Basophils % 0.2 Nucleated Red Blood Cells % 0.0 Neutrophils # (Manual) 9.1 H Lymphocytes # 1.2 Monocytes # 0.8 Eosinophils # 0.1 Basophils # 0.0 Nucleated Red Blood Cells # 0.0 Sodium Level 141 Potassium Level 4.0 Chloride Level 102 Carbon Dioxide Level 27 Anion Gap 16 Blood Urea Nitrogen 13 Creatinine 0.67 Glucose Level 143 Calcium Level 8.6 Phosphorus Level 2.2 L Magnesium Level 2.2 Total Bilirubin 0.2 Direct Bilirubin 0.00 Indirect Bilirubin 0.2 Aspartate Amino Transf (AST/SGOT) 54 H Alanine Aminotransferase (ALT/SGPT) 70 H Alkaline Phosphatase 84 # Total Protein 6.7 Albumin 3.2 L Globulin 3.50 H Albumin/Globulin Ratio 0.91 Test 02/22/17 11:28 Bedside Glucose 141 Medications Medications Current Medications Acetaminophen/ Hydrocodone Bitart ([place] (5/325)) 1 tab Q6H PRN PO PAIN LEVEL 4 -6 Last administered on 02/21/17 11:30; Admin Dose 1 TAB; Start 02/19/17 at 05: 00 Docusate Sodium (Colace) 100 mg Q12H PRN PO CONSTIPATION Last administered on 20:14; Admin Dose 100 MG; Start 02/19/17 at 05:00 Enoxaparin Sodium (Lovenox) 40 mg DAILY SC Last administered on 02/22/17 08:23 ; Admin Dose 40 MG; Start 02/19/17 at 09:00 Diagnostic Test (Pha) (Accu-Chek) 1 ea 02 XX ; Start 02/20/17 at 02:00 Metoprolol Tartrate (Lopressor) 25 mg BID PO Last administered on 02/22/17 08: 19; Admin Dose 25 MG; Start 02/19/17 at 21:00 Losartan Potassium (Cozaar) 25 mg BID PO Last administered on 02/22/17 08:18; Admin Dose 25 MG; Start 02/19/17 at 21:00 Hydralazine HCl (Apresoline) 10 mg Q8H PRN IV ELEVATED BLOOD PRESSURE Last administered on 02/19/17 20:14; Admin Dose 10 MG; Start 02/19/17 at 20:00 Miscellaneous Information 1 ea NOTE XX ; Start 02/19/17 at 20:30 Glucose (Glutose) 15 gm Q15M PRN PO DECREASED GLUCOSE; Start 02/19/17 at 20:30 Glucose (Glutose) 22.5 gm Q15M PRN PO DECREASED GLUCOSE; Start 02/19/17 at 20: 30 Dextrose (D50w Syringe) 25 ml Q15M PRN IV DECREASED GLUCOSE; Start 02/19/17 at 20:30 Dextrose (D50w Syringe) 50 ml Q15M PRN IV DECREASED GLUCOSE; Start 02/19/17 at 20:30 Glucagon (Glucagen) 1 mg Q15M PRN IM DECREASED GLUCOSE; Start 02/19/17 at 20:30 Glucose (Glutose) 15 gm Q15M PRN BUCCAL DECREASED GLUCOSE; Start 02/19/17 at 20 :30 Magnesium Hydroxide (Milk Of Mag) 30 ml DAILY PRN PO CONSTIPATION Last administered on 02/19/17 22:43; Admin Dose 30 ML; Start 02/19/17 at 20:30 Bisacodyl (Dulcolax Supp) 10 mg DAILY PRN [place] CONSTIPATION Last administered on 02/19/17 22:43; Admin Dose 10 MG; Start 02/19/17 at 20:30 Morphine Sulfate 2 mg 2 mg Q4H PRN IV PAIN Last administered on 02/20/17 11:24 ; Admin Dose 2 MG; Start 02/19/17 at 20:30 Sodium Chloride (NS) 1,000 ml @ 75 mls/hr [id number] IV Last administered on 02/22 05:36; Admin Dose 75 MLS/HR; Start 02/19/17 at 20:30 Atorvastatin Calcium (Lipitor) 40 mg HS PO Last administered on 02/21/17 20:14 ; Admin Dose 40 MG; Start 02/19/17 at 21:00 Amlodipine Besylate (Norvasc) 10 mg DAILY PO Last administered on 02/22/17 08: 19; Admin Dose 10 MG; Start 02/20/17 at 09:00 Aspirin (Halfprin) 81 mg DAILY PO Last administered on 02/22/17 08:20; Admin Dose 81 MG; Start 02/20/17 at 09:00 Lorazepam (Ativan) 1 mg Q8H PRN PO ANXIETY Last administered on 02/21/17 20:27 ; Admin Dose 1 MG; Start 02/19/17 at 21:00 Levothyroxine Sodium 75 mcg 75 mcg DAILY@06 PO Last administered on 02/22/17 05:27; Admin Dose 75 MCG; Start 02/20/17 at 06:00 Levofloxacin/ Dextrose 100 ml @ 100 mls/hr Q24H IVPB Last administered on 02/21 20:18; Admin Dose 100 MLS/HR; Start 02/19/17 at 21:00 Metronidazole (Flagyl 500 Mg (Pmx)) 100 ml @ 100 mls/hr Q8 IVPB Last administered on 02/22/17 05:26; Admin Dose 100 MLS/HR; Start 02/19/17 at 22:00 Ondansetron HCl (Zofran Inj) 4 mg Q4H PRN IV NAUSEA AND/OR VOMITING Last administered on 02/21/17 20:18; Admin Dose 4 MG; Start 02/20/17 at 11:30 Oxycodone/ Acetaminophen (Percocet (5/ 325)) 1 tab Q4H PRN PO MILD PAIN (1-3) Last administered on 02/22/17 08:17; Admin Dose 1 TAB; Start 02/20/17 at 19:00 Oxycodone/ Acetaminophen (Percocet (5/ 325)) 2 tab Q4H PRN PO MODERATE PAIN (4- 6) Last administered on 02/22/17 02:53; Admin Dose 2 TAB; Start 02/20/17 at 19: 00 Ondansetron HCl (Zofran Inj) 4 mg Q6H PRN IV NAUSEA; Start 02/20/17 at 19:00 Pantoprazole (Protonix Tab) 40 mg BID@06,18 PO Last administered on 02/22/17t 05:27; Admin Dose 40 MG; Start 02/21/17 at 18:00 Acetaminophen (Tylenol Tab) 650 mg Q6H PRN PO PAIN AND OR ELEVATED TEMP; Start 02/21/17 at 18:30 FARHAD GIPSON Feb 22, 2017 14:24
[2017-02-22] MEDS ORDERED: metroNIDAZOLE 500 MG TAB PO SCH (14:30)
--- NOTE | 2017-02-22 14:37 | PDOCDIS ---
Discharge Instructions CONDITION Patient Condition: Stable HOME CARE INSTRUCTIONS: Diet Instructions: Low Fat /CholesterolSpecial Diet: Full liquid, advance to soft in the next 2 days per ACTIVITY: Activity Restrictions: Slowly Increase Activity Rest between Activity Avoid heavy lifting Do not operate Machinery Do not operate Power Tool Avoid Heavy Housework FOLLOW UP/APPOINTMENTS Follow-up Plan Follow-up with Dr. Alvarze in 5 days With primary care physician within 1 week FARHAD GIPSON Feb 22, 2017 14:37
[2017-02-22] MEDS ORDERED: LEVO500T72 PO (14:40)
[2017-02-22] MEDS ORDERED: METR500T PO (14:40)
[2017-02-22] MEDS ORDERED: Oxycodone/Acetamin (5/325) PO (14:40)
[2017-02-22] MEDS ORDERED: PANT40TA3 PO (14:40)
[2017-02-22] MEDS ORDERED: LEVOFLOXACIN 500 MG TAB PO SCH (21:00)
== END 2017-02-22 16:35 | disposition home or self-care (01) | DRG 419 ==
LOC: E/R 00:56 → INTOOBSV 04:23 → MS3 04:23 → TEL 17:45 → OBSVTOIN 02-22 08:47
PROVIDERS: ADMIT Internal Medicine; ATTEND Internal Medicine
PROC: 0D9W40Z Drainage of Peritoneum with Drainage Device, Percutaneous Endoscopic Approach (ICD-10-PCS; 2017-02-20)
PROC: 0FT44ZZ Resection of Gallbladder, Percutaneous Endoscopic Approach (ICD-10-PCS; principal; 2017-02-20 17:00)
DX: K81.0 Acute cholecystitis (principal); E11.9 Type 2 diabetes mellitus without complications; I10 Essential (primary) hypertension; E03.9 Hypothyroidism, unspecified; E78.5 Hyperlipidemia, unspecified; F41.9 Anxiety disorder, unspecified
CPT/HCPCS: 36415; 71010; 74176; 80048; 80053; 80061; 80076; 82150; 82550; 82553; 82962; 83036; 83690; 83735; 84100; 84439; 84443; 84484; 85025; 85378; 85610; 85730; 88304; 93005; 93306; 96374; 96375; G0378; C9113; J0360; J1650; J1815; J1885; J1956; J2250; J2270; J2405; J2765; J3010; J3475; J7030; J7999